=== PATIENT | male | born 2000 | race American Indian/Alaskan Native ===

== ENCOUNTER 2018-08-31 20:52 | Emergency (ER) | payer MEDICAID ==
[2018-08-31 20:58] VITALS: RESP 16
[2018-08-31] MEDS ORDERED: Sodium Chloride 0.9% 1,000 ML IV SCH (21:15)
[2018-08-31 21:32] LABS: BASO % 0.5 % (0.0-2.0); EOS % 0.2 % (0.0-4.0); HEMOGLOBIN 15.4 g/dL (12.0-18.0); LYMPH % 17.1 % (20.0-40.0); MEAN CELL VOLUME 84.9 fl (80.0-94.0); MEAN CORPUSCULAR HEMOGLOBIN 28.8 pg (27.0-31.0); MEAN CORPUSCULAR HGB CONC 33.9 g/dL (33.0-37.0); MEAN PLATELET VOLUME 9.9 fl (7.2-11.7); MONO # 0.9 K/uL (0.0-0.8); MONO % 15.6 % (0.0-10.0); NEUT % 66.6 % (50.0-75.0); NRBC % 0.1 % (0.0-0.0); RBC 5.37 Mil/uL (4.40-5.90); RED CELL DISTRIBUTION WIDTH 14.2 % (11.5-14.5)
[2018-08-31 21:34] LABS: VENOUS BLOOD GAS BASE EXCESS 0.8 mmol/L (0.0-2.0); VENOUS BLOOD GAS PCO2 46 mmHg (40-60); VENOUS BLOOD GAS PO2 34 mm/Hg (30-55); VENOUS BLOOD PH 7.37 (7.32-7.43)
[2018-08-31 21:43] LABS: ALB/GLOB RATIO 1.7 (1.0-2.1); ALBUMIN 4.4 g/dL (3.5-5.0); ALT/SGPT 55 U/L (21-72); AST/SGOT 26 U/L (17-59); BLOOD UREA NITROGEN 13 mg/dl (9-20); CALCIUM 8.9 mg/dL (8.4-10.2); GFR NON-AFRICAN AMERICAN > 60
--- NOTE | 2018-08-31 21:53 | ED PDOC ---
Syncope/Near Syncope/Dizziness Time Seen by Provider: 08/31/18 21:03 Chief Complaint (Nursing): Syncope Chief Complaint (Provider): Syncope History Per: Patient, EMS History/Exam Limitations: clinical condition Onset/Duration Of Symptoms: Unknown Current Symptoms Are (Timing): Still Present Additional Complaint(s): 18 y/o male brought in by EMS for evaluation of a syncopal episode. Patient himself is unable to provide reliable history due to his clinical condition. 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 Customer offered patient to sit down and patient then passed out. At that time, patient appeared unresponsive and CPR was initiated by the customer. By the time EMS got there they noticed that the patient didn't need CPR. As per patient, he has had a cough for the past two days and was unaware that he had a fever. At this time, patient only complaining of a headache. Patient states he cannot recall exactly what happened. Patient notes of having a seizure once when he was younger. Patient additionally reports of having a history of some stomach problems but is unable to clarify. Otherwise, patient denies recent travel or neck pain PMD: none provided Past Medical History Reviewed: Historical Data, Nursing Documentation, Vital Signs Vital Signs: Last Vital Signs Temp 101.6 F H 08/31/18 21:29 Pulse 101 H 08/31/18 20:56 Resp 16 08/31/18 20:56 BP 132/65 08/31/18 20:56 Pulse Ox 98 08/31/18 20:56 - Medical History PMH: No Chronic Diseases Other PMH: constipation, febrile seizure as child - Surgical History Surgical History: No Surg Hx - Family History Family History: States: Unknown Family Hx - Social History Current smoker - smoking cessation education provided: No Alcohol: Occasional Drugs: Cannabis - Home Medications Home Medications: Ambulatory Orders Medication Instructions Recorded Cephalexin [Keflex] 500 mg PO TID 7 Days #21 capsule 09/01/18 Ibuprofen [Motrin Tab] 600 mg PO Q6 PRN #20 tab 09/01/18 - Allergies Allergies/Adverse Reactions: Allergies Allergy/AdvReac Type Severity Reaction Status Date / Time Unobtainable Allergy Verified 08/31/18 21:04 Review of Systems ROS Statement: Except As Marked, All Systems Reviewed And Found Negative Constitutional: Negative for: Fever Respiratory: Positive for: Cough Neurological: Positive for: Headache, Other (syncope) Physical Exam - Reviewed Nursing Documentation Reviewed: Yes Vital Signs Reviewed: Yes - Physical Exam Comments: GENERALIZED APPEARANCE:Patient is awake, oriented x3 but slow to respond. SKIN: Warm, dry; (-) cyanosis. HEAD: Atraumatic. (-) scalp swelling or tenderness. EYES: EOMI. PERRL. (-) conjunctival pallor. ENMT: Mucous membranes dry. (-)air way obstruction (-)tonsilar enlargement (- )abrasions or lacerations NECK: (-) tenderness, (-) stiffness, (-) lymphadenopathy. CHEST AND RESPIRATORY: (+) dry cough, (-) rales, (-) rhonchi, (-) wheezes; breath sounds equal bilaterally. HEART AND CARDIOVASCULAR: (+) tachycardia, (-) irregularity; (-) murmur, (-) gallop. ABDOMEN AND GI: Soft; (-) distention, (-) tenderness, (-) rebound, (-) guarding, (-) palpable masses, (-) flank tenderness. EXTREMITIES: (-) deformity; (-) edema. Distal pulses: present. NEURO AND PSYCH: Mental status as above. 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 Strength symmetric. - Laboratory Results Result Diagrams: 08/31/18 21:08/31/18 Lab Results: pO2 34 mm/Hg (30-55) 08/31/18: VBG pH 7.37 (7.32-7.43) 08/31/18: VBG pCO2 46 mmHg (40-60) 08/31/18: VBG HCO3 24.6 mmol/L 08/31/18: VBG Total CO2 28.0 mmol/L (22-28) 08/31/18: VBG O2 Sat (Calc) 68.6 % (40-65) H 08/31/18: VBG Base Excess 0.8 mmol/L (0.0-2.0) 08/31/18: VBG Potassium 3.6 mmol/L (3.6-5.2) 08/31/18:26 Sodium 138.0 mmol/L (132-148) 08/31/18 21: Chloride 104.0 mmol/L (98-107) 08/31/18 21:26 Glucose 90 mg/dL (75-110) 08/31/18 21:26 Lactate 1.4 mmol/L (0.7-2.1) 08/31/18 21:26 FiO2 21.0 % 08/31/18 21: Total Bilirubin 0.4 mg/dl (0.2-1.3) 08/31/18 21:23 AST 26 U/L (17-59) 08/31/18 21:23 ALT 55 U/L (21-72) 08/31/18 21: Alkaline Phosphatase 76 U/L (38-126) 08/31/18 21: Total Protein 7.1 G/DL (6.3-8.2) 08/31/18: Albumin 4.4 g/dL (3.5-5.0) 08/31/18: Globulin 2.7 gm/dL (2.2-3.9) 08/31/18 21: Albumin/Globulin Ratio 1.7 (1.0-2.1) 08/31/18 21:23 - ECG ECG: Positive for: Interpreted By Me, Viewed By Me ECG Rhythm: Positive for: Normal QRS, Sinus Rhythm. Negative for: ST/T Changes Rate: 100 O2 Sat by Pulse Oximetry: 98 (RA) Pulse Ox Interpretation: Normal Medical Decision Making Medical Decision Making: Time: 2138 Plan: -- VBG -- CT Head w/o Contrast -- EKG -- CMP -- Urine Drug Screen -- CBC with Differentials -- CXR Two Views -- Glucose, POC -- Sodium Chloride IV 1000 mls/hr -- Tylenol 650 mg PO -- Tylenol 325 mg PO -- IV Insertion -- Influenza A B -- Rapid Strep Group A Antigen -- Urinalysis -- Discussed with Dr. To who agrees with assessment and plan of care. 2229 on re eval, pt's friend is here, pt is now awake and alert, he reports he remembers getting to building, feeling dizzy, sat down, got up again and was still dizzy, he reports he remembers hearing the customers voice but otherwise it is a blur. Pt reports h/o constipation and febrile seizure as child, nothing recent, no medications, admits to marijuana use, but not today. Pt reports hal meza better 0008 EXAM: CT Head Without IV contrast. CLINICAL HISTORY: Syncope TECHNIQUE: Axial computed tomography images of the head/brain without intravenous contrast. COMPARISON: None provided. FINDINGS: BRAIN: No acute intraparenchymal hemorrhage. No mass lesion. No CT evidence for acute territorial infarct. No midline shift or extra-axial collections. VENTRICLES: No hydrocephalus. ORBITS: The orbits are unremarkable. SINUSES AND MASTOIDS: The paranasal sinuses and mastoid air cells are clear. BONES: No fracture. SOFT TISSUES: Unremarkable. IMPRESSION: No acute intracranial abnormality. CXR reviewed by me and Dr. To - no infiltrates, no cardiomegaly, no active disease pending Urine results 0120 re eval pt is feeling much better,urine shows RBC, pt reports some urinary frequency, but no other complaints, will send culture, cover with antibiotics and refer to urology Pt with syncopal episode, cough, fever, likely viral URI pt is alert, awake, oriented x3, VSS, pulse and temp have come down, neurolo gically intact discussed results, diagnosis, treatment, return precautions and f/u with pt who is understanding, in agreement and stable for dc Scribe Attestation: Documented by Mynor Baker, acting as a scribe Sampson De Paz PA-C. Provider Scribe Attestation: All medical record entries made by the Scribe were at my direction and personally dictated by me. I have reviewed the chart and agree that the record accurately reflects my personal performance of the history, physical exam, medical decision making, and the department course for this patient. I have also personally directed, reviewed, and agree with the discharge instructions and disposition. Disposition - Clinical Impression Clinical Impression: Syncope, Viral infection, Hematuria, microscopic - Patient ED Disposition Is Patient to be Admitted: No Counseled Patient/Family Regarding: Studies Performed, Diagnosis, Need For Followup, Rx Given - Disposition Referrals: your, doctor [Other] Adarsh Larson MD [Staff Provider] - Disposition: Routine/Home Disposition Time: 01:25 Condition: IMPROVED Additional Instructions: The emergency medical care you received today was directed at your acute symptoms. If you were prescribed any medication, please fill it and take as directed. Alternate between Tylenol and Ibuprofen for fever and pain. Rest, dri nk plenty of fluids to stay hydrated. It may take several days for your symptoms to resolve. Return to the Emergency Department if your symptoms worsen, do not improve, or if you have any other problems. Please contact your doctor in 2 days for re-evaluation and follow up / or call one of the physicians/clinics you have been referred to that are listed on the Patient Visit Information form that is included in your discharge packet. Bring any paperwork you were given at discharge with you along with any medications you are taking to your follow up visit. Our treatment cannot replace ongoing me dical care by a primary care provider (PCP) outside of the emergency department. Prescriptions: Cephalexin [Keflex] 500 mg PO TID 7 Days #21 capsule Ibuprofen [Motrin Tab] 600 mg PO Q6 PRN #20 tab PRN Reason: Fever >100.4 F Instructions: Syncope (Fainting), Blood in the Urine (Hematuria) in Adults, Viral Upper Respiratory Infection, Adult (DC) Forms: [facility] (Ukrainian), [facility] ED School/Work Excuse Print Language: KINYARWANDA - POA Present On Arrival: None Results - Lab Results Lab Results: 09/01/18 09/01/18 08/31/18 00:46 00:46 22:15 WBC RBC Hgb Hct MCV MCH MCHC RDW Plt Count MPV Neut % (Auto) Lymph % (Auto) [place] % (Auto) Eos % (Auto) Baso % (Auto) Neut # (Auto) Lymph # (Auto) [place] # (Auto) Eos # (Auto) Baso # (Auto) pO2 VBG pH VBG pCO2 VBG HCO3 VBG Total CO2 VBG O2 Sat (Calc) VBG Base Excess VBG Potassium Glucose Lactate FiO2 Sodium Potassium Chloride Carbon Dioxide Anion Gap BUN Creatinine Est GFR ( Amer) Est GFR (Non-Af Amer) POC Glucose (mg/dL) Random Glucose Calcium Total Bilirubin AST ALT Alkaline Phosphatase Total Protein Albumin Globulin Albumin/Globulin Ratio Venous Blood Potassium Urine Color Yellow Urine Clarity Cloudy Urine pH 6.0 Ur Specific [place] 1.032 H Urine Protein 100 Urine Glucose (UA) Neg Urine Ketones Trace Urine Blood Moderate Urine Nitrate Negative Urine Bilirubin Negative Urine Urobilinogen 0.2-1.0 Ur Leukocyte Esterase Neg Urine RBC (Auto) 28 H Urine Microscopic WBC 6 H Ur Squamous Epith Cells < 1 Urine Bacteria Occ H Urine Opiates Screen Negative Urine Methadone Screen Negative Ur Barbiturates Screen Negative Ur Phencyclidine Scrn Negative Ur Amphetamines Screen Negative U Benzodiazepines Scrn Positive U Oth Cocaine Metabols Negative U Cannabinoids Screen Positive H Alcohol, Quantitative < 10 Influenza Typ A,B (EIA) Grp A Beta Strep Ag 08/31/18 08/31/18 08/31/18 21:58 21:26 21:23 WBC RBC Hgb Hct MCV MCH MCHC RDW Plt Count MPV Neut % (Auto) Lymph % (Auto) De[place] % (Auto) Eos % (Auto) Baso % (Auto) Neut # (Auto) Lymph # (Auto) Deuel # (Auto) Eos # (Auto) Baso # (Auto) pO2 34 VBG pH 7.37 VBG pCO2 46 VBG HCO3 24.6 VBG Total CO2 28.0 VBG O2 Sat (Calc) 68.6 H VBG Base Excess 0.8 VBG Potassium 3.6 Glucose 90 Lactate 1.4 FiO2 21.0 Sodium 138.0 Potassium Chloride 104.0 Carbon Dioxide Anion Gap BUN Creatinine Est GFR ( Amer) Est GFR (Non-Af Amer) POC Glucose (mg/dL) Random Glucose Calcium Total Bilirubin AST ALT Alkaline Phosphatase Total Protein Albumin Globulin Albumin/Globulin Ratio Venous Blood Potassium 3.6 Urine Color Urine Clarity Urine pH Ur Specific [place] Urine Protein Urine Glucose (UA) Urine Ketones Urine Blood Urine Nitrate Urine Bilirubin Urine Urobilinogen Ur Leukocyte Esterase Urine RBC (Auto) Urine Microscopic WBC Ur Squamous Epith Cells Urine Bacteria Urine Opiates Screen Urine Methadone Screen Ur Barbiturates Screen Ur Phencyclidine Scrn Ur Amphetamines Screen U Benzodiazepines Scrn U Oth Cocaine Metabols U Cannabinoids Screen Alcohol, Quantitative Influenza Typ A,B (EIA) Negative for flu a/b Grp A Beta Strep Ag Negative 08/31/18 08/31/18 08/31/18 21:23 21:23 21:15 WBC 6.0 RBC 5.37 Hgb 15.4 Hct 45.6 MCV 84.9 MCH 28.8 MCHC 33.9 RDW 14.2 Plt Count 171 MPV 9.9 Neut % (Auto) 66.6 Lymph % (Auto) 17.1 L Deuel % (Auto) 15.6 H Eos % (Auto) 0.2 Baso % (Auto) 0.5 Neut # (Auto) 4.0 Lymph # (Auto) 1.0 Deuel # (Auto) 0.9 H Eos # (Auto) 0.0 Baso # (Auto) 0.0 pO2 VBG pH VBG pCO2 VBG HCO3 VBG Total CO2 VBG O2 Sat (Calc) VBG Base Excess VBG Potassium Glucose Lactate FiO2 Sodium 140 Potassium 3.5 L Chloride 104 Carbon Dioxide 24 Anion Gap 16 BUN 13 Creatinine 0.8 Est GFR ( Amer) > 60 Est GFR (Non-Af Amer) > 60 POC Glucose (mg/dL) 98 Random Glucose 93 Calcium 8.9 Total Bilirubin 0.4 AST 26 ALT 55 Alkaline Phosphatase 76 Total Protein 7.1 Albumin 4.4 Globulin 2.7 Albumin/Globulin Ratio 1.7 Venous Blood Potassium Urine Color Urine Clarity Urine pH Ur Specific [place] Urine Protein Urine Glucose (UA) Urine Ketones Urine Blood Urine Nitrate Urine Bilirubin Urine Urobilinogen Ur Leukocyte Esterase Urine RBC (Auto) Urine Microscopic WBC Ur Squamous Epith Cells Urine Bacteria Urine Opiates Screen Urine Methadone Screen Ur Barbiturates Screen Ur Phencyclidine Scrn Ur Amphetamines Screen U Benzodiazepines Scrn U Oth Cocaine Metabols U Cannabinoids Screen Alcohol, Quantitative Influenza Typ A,B (EIA) Grp A Beta Strep Ag
[2018-09-01 00:56] LABS: SQUAMOUS EPITHIAL < 1 /hpf (0-5); URINE BACTERIA OCC (<OCC); URINE BILIRUBIN NEGATIVE (NEGATIVE); URINE BLOOD MODERATE (NEGATIVE); URINE CLARITY CLOUDY (Clear); URINE COLOR YELLOW (YELLOW); URINE GLUCOSE (UA) NEG (NEGATIVE); URINE LEUKOCYTE ESTERASE NEG Leu/uL (Negative); URINE PROTEIN 100 mg/dL (NEGATIVE); URINE UROBILINOGEN 0.2-1.0 mg/dL (0.2-1.0)
[2018-09-01 01:06] LABS: BARBITURATES, UR NEGATIVE (NEGATIVE); BENZODIAZEPINES, UR POSITIVE (NEGATIVE); OPIATES, UR NEGATIVE (NEGATIVE); PHENCYCLIDINE, UR NEGATIVE (NEGATIVE)
[2018-09-01 01:44] VITALS: BP 128/62; TEMP 98.8
[2018-09-01 01:53] VITALS: PULSE 100; O2SAT 98
--- NOTE | 2018-09-01 11:00 | RAD ---
Date of service: 08/31/2018 HISTORY: fever, cough, syncope COMPARISON: No prior. TECHNIQUE: 1 view obtained. FINDINGS: LUNGS: No active pulmonary disease. PLEURA: No significant pleural effusion identified, no pneumothorax apparent. CARDIOVASCULAR: No aortic atherosclerotic calcification present. Normal cardiac size. No pulmonary vascular congestion. OSSEOUS STRUCTURES: No significant abnormalities. VISUALIZED UPPER ABDOMEN: Normal. OTHER FINDINGS: None. IMPRESSION: No active disease.
--- NOTE | 2018-09-01 11:31 | CT ---
Date of service: 08/31/2018 PROCEDURE: CT HEAD WITHOUT CONTRAST. HISTORY: syncope COMPARISON: None available. TECHNIQUE: Axial computed tomography images were obtained through the head/brain without intravenous contrast. Radiation dose: Total exam DLP = 868.97 mGy-cm. This CT exam was performed using one or more of the following dose reduction techniques: Automated exposure control, adjustment of the mA and/or kV according to patient size, and/or use of iterative reconstruction technique. FINDINGS: HEMORRHAGE: No intracranial hemorrhage. BRAIN: No mass effect or edema. No atrophy or chronic microvascular ischemic changes. VENTRICLES: Unremarkable. No hydrocephalus. CALVARIUM: Unremarkable. PARANASAL SINUSES: Unremarkable as visualized. No significant inflammatory changes. MASTOID AIR CELLS: Unremarkable as visualized. No inflammatory changes. OTHER FINDINGS: None. IMPRESSION: No acute pathology.
--- NOTE | 2018-09-01 21:21 | CARD ---
APPROVED REPORT Date of service: 08/31/2018 EKG Measurement Heart [id number] <Conclusion> Normal sinus rhythm Moderate voltage criteria for LVH, may be normal variant Otherwise normal ECG
== END 2018-09-01 01:50 | disposition home or self-care (01) ==
LOC: H.ER 20:52
DX: R55 Syncope and collapse (principal); B34.9 Viral infection, unspecified; R31.29 Other microscopic hematuria
CPT/HCPCS: 70450; 71045; 80053; 80320; 80324; 80345; 80346; 80349; 80353; 80358; 80361; 81003; 82803; 82948; 83992; 85025; 87070; 87086; 87430; 87804; 93005; 99285; J7030